=== PATIENT | female | born 1965 ===

== ENCOUNTER → 2021-02-11 | Outpatient (CLI) | payer OTHER | END | disposition home or self-care (01) | LOC: PPH VACUNA 13:32 | DX: Z23 Encounter for immunization (principal) ==

== ENCOUNTER 2021-03-04 13:39 | Outpatient (CLI) | payer OTHER | END 2021-03-04 13:40 | disposition home or self-care (01) | LOC: PPH VACUNA 13:39 | DX: Z23 Encounter for immunization (principal) ==